=== PATIENT | male | born 1945 | race Caucasian/White ===

== ENCOUNTER 2019-12-20 15:29 | Emergency (ER) | payer BC, OTHER, MEDICARE ==
[~2019-12-20] VITALS: Ht 180.3 cm; Wt 122.7 kg
[2019-12-20] MEDS ORDERED: PANT40TA29 (15:39)
[2019-12-20] MEDS ORDERED: GABA600T4 (15:39)
[2019-12-20] MEDS ORDERED: TAMS1CAP17 (15:39)
[2019-12-20] MEDS ORDERED: FINA5TAB2 (15:39)
[2019-12-20] MEDS ORDERED: VITACAP31 (15:42)
[2019-12-20] MEDS ORDERED: JARD1TAB PO (15:42)
[2019-12-20] MEDS ORDERED: BISO5TAB14 PO (15:42)
[2019-12-20] MEDS ORDERED: METF-839 PO (15:42)
[2019-12-20] MEDS ORDERED: LISI-538 PO (15:42)
[2019-12-20] MEDS ORDERED: ONDANSETRON 4MG/2ML VIAL IV ONE (16:00)
[2019-12-20] MEDS ORDERED: MORPHINE 2 MG/ML 1ML VIAL (J2270) IV ONE (16:00)
[2019-12-20] MEDS ORDERED: NS 500 ML IV ONE (16:00)
[2019-12-20 16:56] LABS: ALBUMIN 3.8 GM/DL (3.2-5.2); BILIRUBIN,DIRECT 0.1 MG/DL (0.0-0.2); TOTAL PROTEIN 7.2 GM/DL (6.4-8.2)
[2019-12-20] MEDS ORDERED: ISOVUE-370 76% 100ML VIAL As Ordered ONE (16:59)
--- NOTE | 2019-12-20 18:01 | REPVR ---
PROCEDURE INFORMATION: Exam: CT Abdomen And Pelvis With Contrast Exam date and time: 12/20/2019 5:14 PM Age: 74 years old Clinical indication: Abdominal pain; Localized; Left; Additional info: Left sided abdominal pain; R/O diverticulitis TECHNIQUE: Imaging protocol: Computed tomography of the abdomen and pelvis with intravenous contrast. Radiation optimization: All CT scans at this facility use at least one of these dose optimization techniques: automated exposure control; mA and/or kV adjustment per patient size (includes targeted exams where dose is matched to clinical indication); or iterative reconstruction. Contrast material: ISOVUE 370; Contrast volume: 100 ml; Contrast route: INTRAVENOUS (IV); COMPARISON: No relevant prior studies available. FINDINGS: Lungs: Small noncalcified nodules at the lung bases measure up to 6 mm in the right lower lobe. Liver: There is a diffuse decrease in hepatic parenchymal density, consistent with steatosis. Gallbladder and bile ducts: There has been a cholecystectomy. Pancreas: There is diffuse pancreatic atrophy. Spleen: Normal. No splenomegaly. Adrenals: Normal. No mass. Kidneys and ureters: Normal. No hydronephrosis. Stomach and bowel: Mild diverticulosis is present in the distal colon. No diverticulitis. Appendix: No evidence of appendicitis. Intraperitoneal space: Unremarkable. No free air. No significant fluid collection. Vasculature: The aortoiliac vessels demonstrate mild atherosclerotic calcification. Lymph nodes: Unremarkable. No enlarged lymph nodes. Bladder: Unremarkable as visualized. Reproductive: Unremarkable as visualized. Bones/joints: Severe central spinal stenosis L2-L3, L3-L4 and L4-L5. Bilateral facet joint arthropathy L5-S1. Soft tissues: Bilateral inguinal hernias. No incarceration. IMPRESSION: 1. Small noncalcified nodules at the lung bases measure up to 6 mm in the right lower lobe. For patients at low risk (minimal or absent history of smoking and of other known risk factors), no routine follow-up is indicated. For patients at high risk (history of smoking or of other known risk factors), consider optional CT at 12 months. (eva Alvarado al., Fleischner Society, 2017) 2. There is a diffuse decrease in hepatic parenchymal density, consistent with steatosis. 3. There has been a cholecystectomy. 4. There is diffuse pancreatic atrophy. 5. Mild diverticulosis is present in the distal colon. No diverticulitis. Electronically signed by: John Monsivais On 12/20/2019 18:01:32 PM
[2019-12-20 18:30] LABS: BASO # 0.1 10^3/uL (0.0-0.2); BASO % 0.5 % (0.0-1.0); EOS % 0.3 % (0.0-3.0); HEMATOCRIT 46.4 % (42.0-52.0); HEMOGLOBIN 15.1 g/dl (13.5-17.5); LYMPH # 1.1 10^3/uL (1.5-5.0); LYMPH % 9.3 % (24.0-44.0); MEAN CORPUSCULAR HEMOGLOBIN 30.6 pg (27.0-33.0); MEAN CORPUSCULAR HGB CONC 32.5 g/dl (32.0-36.5); MEAN CORPUSCULAR VOLUME 93.9 fl (80.0-96.0); MONO # 0.6 10^3/uL (0.0-0.8); MONO % 5.3 % (0.0-5.0); NEUTROPHILS # 9.8 10^3/uL (1.5-8.5); NEUTROPHILS % 83.7 % (36.0-66.0); PLATELET COUNT, AUTOMATED 170 10^3/uL (150-450); RED BLOOD COUNT 4.94 10^6/uL (4.30-6.10); WHITE BLOOD COUNT 11.7 10^3/uL (4.0-10.0)
[2019-12-20] MEDS ORDERED: ONDA4TAB6 PO (20:57)
[2019-12-20 21:28] VITALS: BP 140/68
--- NOTE | 2019-12-24 13:36 | ED PDOC ---
Post-Departure Follow-Up artem costello faxed formal report of ct abd/p for fu Sherin Cooper MD Dec 24, 2019 13:36
== END 2019-12-20 21:56 | disposition home or self-care (01) ==
LOC: M ED 15:29
DX: K52.9 Noninfective gastroenteritis and colitis, unspecified (principal); I51.9 Heart disease, unspecified; E11.9 Type 2 diabetes mellitus without complications; I10 Essential (primary) hypertension; K57.92 Diverticulitis of intestine, part unspecified, without perforation or abscess without bleeding; Z87.891 Personal history of nicotine dependence
CPT/HCPCS: 36415; 74177; 80047; 80076; 81001; 83690; 85025; 96361; 96374; 96375; 99284; J2270; J2405; Q9967

== ENCOUNTER → 2021-01-31 | Outpatient (REF) ==
[~2021-01-31] MED LIST: BISO5TAB14 PO; FINA5TAB2; GABA600T4; JARD1TAB PO; LISI20TA33 PO; METF-839 PO; ONDA4TAB6 PO; PANT40TA29; TAMS1CAP17; VITACAP31
--- NOTE | 2021-01-31 10:30 | REP ---
INDICATION: SOB COMPARISON: None. TECHNIQUE: PA and lateral. FINDINGS: Mediastinum and cardiac silhouette are normal. Lung enamorado demonstrate chronic appearing changes and elevation to the left hemidiaphragm which are relatively stable when compared with lung base images from abdominal CT dated 12/20/2019. No acute consolidation. No obvious effusion. No pneumothorax. Skeletal structures intact. IMPRESSION: Chronic appearing changes. <Electronically signed by Sesar Garcia > 01/31/21 1024
== END ==
LOC: M PLAIMG 09:44
PROVIDERS: ATTEND Internal Medicine
DX: R06.02 Shortness of breath (principal)